=== PATIENT | male | born 2000 | race African-American/Black ===

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

== ENCOUNTER 2019-12-10 10:41 | Emergency (ER) | payer MEDICAID ==
[~2019-12-10] VITALS: Ht 172.7 cm; Wt 65.9 kg
[2019-12-10 10:45] VITALS: BP 111/72
== END 2019-12-10 12:27 | disposition home or self-care (01) ==
LOC: ER 10:41
DX: R07.89 Other chest pain (principal)
CPT/HCPCS: 71045; 93005; 99283

== ENCOUNTER 2022-03-30 11:26 | Emergency (ER) | payer MEDICAID, OTHER ==
[~2022-03-30] VITALS: Ht 167.6 cm; Wt 75.0 kg
[2022-03-30 11:46] VITALS: BP 127/90
== END 2022-03-30 17:31 | disposition left against medical advice (07) ==
LOC: ER 11:26
DX: Z53.21 Procedure and treatment not carried out due to patient leaving prior to being seen by health care provider (principal); I49.9 Cardiac arrhythmia, unspecified
CPT/HCPCS: 93005